=== PATIENT | female | born 1960 | race Caucasian/White ===

== ENCOUNTER 2016-10-28 22:33 | Emergency (ER) | payer BC ==
[~2016-10-28 22:33] MED LIST: ASPIR 8181 MG PO; BG MC; CYMBALTA30 M1 PO; GLU500 PO; HYD25 PO; MULTIVITAMIN1 SGL PO; OSCD PO; ZES10 PO
[2016-10-29 00:39] VITALS: BP 187/75
== END 2016-10-29 00:39 | disposition home or self-care (01) ==
LOC: ED 22:33
DX: S90.32XA Contusion of left foot, initial encounter (principal); Z88.8 Allergy status to other drugs, medicaments and biological substances; W17.89XA Other fall from one level to another, initial encounter; Y93.89 Activity, other specified; Y99.8 Other external cause status; Y92.89 Other specified places as the place of occurrence of the external cause
CPT/HCPCS: Q0092

== ENCOUNTER 2016-12-22 14:40 | Emergency (ER) | payer BC ==
[2016-12-22 15:32] VITALS: BP 154/89
== END 2016-12-22 15:32 | disposition home or self-care (01) ==
LOC: ED 14:40
DX: L02.416 Cutaneous abscess of left lower limb (principal); Z88.8 Allergy status to other drugs, medicaments and biological substances

== ENCOUNTER 2019-11-30 01:37 | Emergency (ER) | payer BC, OTHER ==
[~2019-11-30] VITALS: Ht 162.6 cm; Wt 99.8 kg
[2019-11-30 02:00] VITALS: Ht 162.6 cm; Wt 99.8 kg
== END 2019-11-30 06:00 | disposition home or self-care (01) ==
LOC: ED 01:37
DX: M79.671 Pain in right foot (principal); M79.672 Pain in left foot; Z86.73 Personal history of transient ischemic attack (TIA), and cerebral infarction without residual deficits; Z91.013 Allergy to seafood
CPT/HCPCS: J1885

== ENCOUNTER 2020-01-02 00:47 | Emergency (ER) | payer BC ==
[~2020-01-02] VITALS: Ht 162.6 cm; Wt 87.5 kg
[2020-01-02 00:54] VITALS: Ht 162.6 cm; Wt 87.5 kg
[2020-01-02 02:08] VITALS: BP 176/92
== END 2020-01-02 02:08 | disposition home or self-care (01) ==
LOC: ED 00:47
DX: M79.672 Pain in left foot (principal); I10 Essential (primary) hypertension; Z91.013 Allergy to seafood
CPT/HCPCS: J1885; Q0092